=== PATIENT | female | born 1985 | race Caucasian/White ===

== ENCOUNTER 2020-07-04 16:46 | Emergency (ER) | payer OTHER, SELFPAY ==
[2020-07-04 17:30] VITALS: BP 114/76; PULSE 74; RESP 16; TEMP 36.8; O2SAT 100; BMI 24.0
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
[2020-07-04 18:31] LABS: UPreg QC Valid YES; Urine Pregnancy NEGATIVE (NEGATIVE)
[2020-07-04] MEDS: Ibuprofen 600 MG TABLET PO (19:21)
== END 2020-07-04 19:52 | disposition home or self-care (01) ==
PROVIDERS: Emergency Provider Emergency Medicine Emergency Medical Services; PCP Family Medicine
DX: S13.4XXA Sprain of ligaments of cervical spine, initial encounter (principal); S16.1XXA Strain of muscle, fascia and tendon at neck level, initial encounter; S39.012A Strain of muscle, fascia and tendon of lower back, initial encounter; V43.52XA Car driver injured in collision with other type car in traffic accident, initial encounter; M50.322 Other cervical disc degeneration at C5-C6 level; Y93.89 Activity, other specified; Y92.414 Local residential or business street as the place of occurrence of the external cause; Y99.8 Other external cause status
CPT/HCPCS: 71045; 72040; 72100; 81025; 99283; 99284

== ENCOUNTER 2020-07-24 12:29 | Emergency (ER) | payer OTHER, SELFPAY ==
[2020-07-24 12:39] VITALS: PULSE 110; RESP 18; TEMP 39.3; O2SAT 100; BMI 27.3
--- NOTE | 2020-07-24 12:56 | XR_ITS ---
EXAMINATION: XR CHEST CLINICAL INFORMATION: Cough and fever COMPARISON: None TECHNIQUE: Frontal view of the chest was obtained. FINDINGS: No significant abnormality is noted involving the heart, lungs, mediastinum, bony thorax or soft tissues. XR/XR chest 1V IMPRESSION: Unremarkable chest examination.
[2020-07-24] MEDS: Acetaminophen 325 MG TABLET 975 MG PO (13:06)
[2020-07-24 14:19] VITALS: BP 122/72; PULSE 100; RESP 18; TEMP 37.9; O2SAT 98
[2020-07-24 14:36] LABS: Glucose Urine UA NEG (NEG); Leukocyte Esterase Urine NEG (NEG); Nitrite Urine NEG (NEG); Specific Gravity - Urine 1.025 (1.005-1.025); Urine Blood 2+ (NEG); Urine Ketones >=80 MG/DL (NEG); Urine Protein 2+ MG/DL (NEG-TRACE)
[2020-07-24 14:39] LABS: Appearance Urine HAZY; Color Urine YELLOW
[2020-07-24 14:50] LABS: Influenza A PCR NEGATIVE (Negative); Influenza B PCR NEGATIVE (Negative); Resp Syncy Virus RNA Qual PCR NEGATIVE (Negative); SARS COV2 PCR INHOUSE NEGATIVE (Negative)
[2020-07-24 15:04] LABS: Squamous Epithelial Cell Urine 2+ /LPF; WBC Urine 0 /HPF (0-4)
[2020-07-24 15:05] LABS: Mucus Urine 2+ /LPF
[2020-07-24 15:06] VITALS: BP 128/72; PULSE 96; RESP 16; TEMP 36.9; O2SAT 99
--- NOTE | 2020-07-24 15:10 | ED_ITS ---
HPI - General Adult General Chief complaint: General Medical Stated complaint: Fever, body aches, sore throat Time Seen by Provider: 07/24/20 12:56 Source: patient Mode of arrival: ambulatory Limitations: no limitations History of Present Illness HPI narrative: Sore throat, body aches, chills for past 2 days Patient febrile 102.8 on arrival denies taking medication today Onset (ago): day(s) (2 days ) Severity: moderate Relieving factors: none Exacerbating factors: none Associated symptoms: denies other symptoms Treatments prior to arrival: none Related Data Previous Rx's Medication Instructions Recorded cyclobenzaprine 10 mg PO TID PRN #15 tab 07/04/20 ibuprofen 800 mg PO Q8H PRN #30 tab 07/24/20 penicillin V potassium 500 mg PO BID 10 Days #20 tab 07/24/20 Allergies Allergy/AdvReac Type Severity Reaction Status Date / Time No Known Allergies Allergy Verified 07/04/20 17:46 Review of Systems Review of Systems: Constitutional: No Weight loss, + Fever, + Chills, No Night Sweats, No Fatigue, No Malaise ENT/Mouth: No Hearing loss, No Ear Pain, + Nasal Congestion, No Sinus Pain, No Hoarseness, + sore throat, + Rhinorrhea, No Swallowing Difficulty Eyes: No Eye Pain, No Swelling, No Redness, No Foreign Body, No Discharge, No Vision Changes Cardiovascular: No Chest Pain, No SOB, No Dyspnea on Exertion, No Orthopnea, No Edema, No Palpitations Respiratory: No Cough, No Sputum, No Wheezing, No Smoke Exposure, No Dyspnea Gastrointestinal: No Nausea, No Vomiting, No Diarrhea, No Constipation, No abdominal Pain, No Hematochezia, No Melena Genitourinary: no irregular bleeding, No Dysuria, No Urinary Frequency, No Hematuria, No Urinary Incontinence, No Urgency, No Flank Pain Musculoskeletal: No joint pain, No Myalgias, No Joint Swelling Skin: No Skin Lesions, No rash Neuro: No Weakness, No Numbness, No Paresthesias, No Loss of Consciousness, No Dizziness, No Headache Psych: No Social Issues Heme/Lymph: No Bruising, No Bleeding,No Lymphadenopathy Endocrine: No Polyuria, No Polydipsia, No Temperature Intolerance Yes all other systems are reviewed and are negative PMFSH Past Medical History Medical History (Updated 12/26/20 @ 00:00 by Niyah Figueroa) Arthritis Bipolar 1 disorder Fibromyalgia PTSD (post-traumatic stress disorder) Social History Social History Smoking Status: Current every day smoker Use of substances other than those prescribed or required for medical reasons: Yes Substance Use Type: Marijuana Substance Use Frequency: Daily Advance Directives: No Advance Directives Information Provided: Yes Physical Exam Vital Signs: Vital Signs: Last Vital Signs Temp 98.4 F 07/24/20 15:06 Pulse 96 07/24/20 15:06 Resp 16 07/24/20 15:06 BP 128/72 07/24/20 15:06 Pulse Ox 99 07/24/20 15:06 Body Mass Index 27.3 Reviewed Const: General: cooperative and healthy appearing; No acute distress or intoxicated appearing Nutritional Appearance: average body habitus Orientation/consciousness: patient oriented x3 HENMT: Head: Yes normal to inspection Ears: hearing grossly normal bilaterally Mouth: other (Posterior pharynx slightly erythematous. No swel ling or evidence of CLINICAL APPEALS SPECIALIST. ) Eyes: General: appearance normal, both eyes and all related structures Visual Page: normal visual page by confrontation Neck: Neck: Yes normal visual inspection, No positive Brudzinski's sign, No positive Kernig's sign and No tender Thyroid: Thyroid normal Chest: Chest palpation & inspection: normal inspection of the chest Resp: Effort & Inspection: normal respiratory effort Auscultation: clear to auscultation bilaterally Cardio: Jugular venous distension: no JVD Rhythm: regular rhythm Heart sounds: S1 normal heart sound present and S2 normal heart sound present GI: Inspection: Yes normal to inspection Percussion: Yes normal to percussion Auscultation: normal bowel sounds : General: Yes no CVA tenderness Back/Spine/Pelvis: Back: no CVA tenderness Skin: General skin exam: no rashes or lesions noted Neuro: General: patient oriented x3 Extrem: General: Yes normal to inspection Course Reevaluation(s) Reevaluation #1: RUN: 07/24/20 0440 PAGE 1 [facility] [address] [place] [id number] Molding Machine Setter: Ricardo Wagner M.D. Specimen Inquiry Name: Brooks Burnette Age/Sex: 34/F : 1985 Unit#: [id number] Attend Dr: Fernanda ED Physician Re07/24/20 Status: REG ER [facility] Disch: Specimen: [id number] Collected: 07/24/20-1429 Status: COMP Req#: [id number] Received: 07/24/20144 Source: Throat Sp Desc: Subm Dr: Manfred Francois MEDICAL TECHNOLOGIST MICROBIOLOGY Ordered: Strep A Screen Procedure Result Verified Site Rapid Strep A Screen Final 07/24/20-1449 Rapid Strep A Screen Positive END OF REPORT Medical Decision Making Lab Data Labs: Lab Results 07/24/20 07/24/20 Range/Units 13:01 14:25 Urine Color YELLOW Urine Appearance HAZY Urine pH 7.0 (5.0-8.0) Ur Specific [place] 1.025 (1.005-1.025) Urine Protein 2+ H (NEG-TRACE) MG/DL Urine Glucose (UA) NEG (NEG) MG/DL Urine Ketones >=80 (NEG) MG/DL Urine Blood 2+ H (NEG) Urine Nitrite NEG (NEG) Ur Leukocyte Esterase NEG (NEG) Urine RBC 15-29 H (0) /HPF Urine WBC 0 (0-4) /HPF Ur Squamous Epith Cells 2+ /LPF Urine Bacteria NONE /LPF Urine Mucus 2+ /LPF Urine Test NEGATIVE (NEGATIVE) Coronavirus (PCR) NEGATIVE (Negative) Influenza Type A (PCR) NEGATIVE (Negative) Influenza Type B (PCR) NEGATIVE (Negative) RSV RNA Qual (PCR) NEGATIVE (Negative) Imaging Data Chest x-ray: Radiologist's impression: Brooks Burnette 34 F [address] [id number] XRay Report Signed Patient: Alyssa BurnetteR#: [id number] : 1985Acct:[id number] Age/Sex: 34 / FADM Date: 07/24/20 [facility] Attending Dr: Ordering Physician: Manfred Francois MEDICAL TECHNOLOGIST MICROBIOLOGY Date of Service: 07/24/20 Procedure(s): XR chest 1V Accession Number(s): [id number] cc: Manfred Francois MEDICAL TECHNOLOGIST MICROBIOLOGY~ EXAMINATION: XR CHEST CLINICAL INFORMATION: Cough and fever COMPARISON: None TECHNIQUE: Frontal view of the chest was obtained. FINDINGS: No significant abnormality is noted involving the heart, lungs, mediastinum, bony thorax or soft tissues. XR/XR chest 1V IMPRESSION: Unremarkable chest examination. Dictated By:EMILY LEMON MD Signed By:<Electronically signed by EMILY LEMON MD in OV>07/24/20 1343 DD/ 1256 TD/TT: Lining Stuffer: [facility] Discharge Plan Discharge Clinical Impression: Pharyngitis Patient Disposition: Home, Self-Care Instructions: Pharyngitis (ED) Additional Instructions: Your strep test was positive You will need to take antibiotic as prescribed Your COVID test was negative Her RSV test was negative Her flu test was negative Her chest x-ray was negative Return if any concerns or worsening symptoms Otherwise follow supportive care discussed Thank you Prescriptions: New penicillin V potassium 500 mg tablet 500 mg PO BID 10 Days Qty: 20 RF: 0 ibuprofen 800 mg tablet 800 mg PO Q8H PRN (Reason: pain) Qty: 30 RF: 0 No Action cyclobenzaprine 10 mg tablet 10 mg PO TID PRN (Reason: muscle spasm) Qty: 15 RF: 0 Referrals: Brenda Kelly MD [Primary Care Provider] - 1 week Interventions: ED Discharge Assessment Last Done: 07/24/20 16:31 Discharge Date/Time: 07/24/20 16:00
[2020-07-24 15:59] LABS: UPreg QC Valid YES; Urine Pregnancy NEGATIVE (NEGATIVE)
== END 2020-07-24 16:00 | disposition home or self-care (01) ==
PROVIDERS: Nurse Practitioner Primary Care; Emergency Provider Emergency Medicine Emergency Medical Services; PCP Family Medicine
DX: J02.0 Streptococcal pharyngitis (principal); R50.9 Fever, unspecified; R05 Cough; Z20.828 Contact with and (suspected) exposure to other viral communicable diseases; Z79.899 Other long term (current) drug therapy
CPT/HCPCS: 0241U; 71045; 81001; 81025; 87880; 99283; 99284

== ENCOUNTER 2020-11-30 13:36 | Outpatient (REF) | payer OTHER, SELFPAY ==
[2020-11-30 14:46] LABS: COVID-19 Test Negative (Negative); IDNOW Serial# 55D5AD1C
== END 2020-11-30 13:37 | disposition home or self-care (01) ==
LOC: HO.LAB 13:36
PROVIDERS: Visit Provider Internal Medicine
DX: Z20.822 Contact with and (suspected) exposure to COVID-19 (principal)
CPT/HCPCS: 36415; 87635; C9803

== ENCOUNTER 2021-01-29 12:03 | Outpatient (REF) | payer OTHER, SELFPAY ==
--- NOTE | ~2021-01-29 | XR_ITS ---
EXAMINATION: XR LUMBOSACRAL SPINE WITH OBLIQUES CLINICAL INFORMATION: Lumbago with sciatica left side. COMPARISON: 07/04/2020 TECHNIQUE: AP, both oblique, and lateral views of the lumbar spine. Lateral view of the lumbosacral junction. FINDINGS: 5 nonrib-bearing lumbar type vertebral bodies are seen. Normal sagittal alignment. Vertebral body and disc heights are maintained. Posterior elements are intact. There is mild subtle convex right lumbar scoliosis with apex at L2. XR/XR lumbar spine 4V min IMPRESSION: Very subtle mild convex right lumbar scoliosis with apex at L2, not seen previously. This can be positional or due to muscle spasm. Otherwise normal study.
== END 2021-01-29 12:04 | disposition home or self-care (01) ==
LOC: HO.XRAY 12:03
PROVIDERS: PCP Family Medicine; Visit Provider Family Medicine
DX: M54.42 Lumbago with sciatica, left side (principal)
CPT/HCPCS: 72110

== ENCOUNTER 2021-11-01 15:57 | Emergency (ER) | payer OTHER, SELFPAY ==
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
[2021-11-01 17:17] VITALS: BP 127/67; PULSE 88; RESP 17; TEMP 36.2; O2SAT 99; BMI 28.6
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
== END 2021-11-01 19:21 | disposition home or self-care (01) ==
PROVIDERS: Emergency Provider Emergency Medicine; PCP Family Medicine
DX: S43.401A Unspecified sprain of right shoulder joint, initial encounter (principal); V03.00XA Pedestrian on foot injured in collision with car, pick-up truck or van in nontraffic accident, initial encounter; Y93.89 Activity, other specified; Y92.481 Parking lot as the place of occurrence of the external cause; Y99.8 Other external cause status
CPT/HCPCS: 73030; 99283

== ENCOUNTER 2022-05-26 12:14 | Outpatient (REF) | payer OTHER, SELFPAY ==
[2022-05-26 12:57] LABS: MANUAL DIFF FLAG NO
[2022-05-26 13:09] LABS: Basophils Percent Auto 0.5 % (0-2); Eosinophils Absolute Auto 0.2 X10*3/uL (0.0-0.4); Eosinophils Percent Auto 2.3 % (0-4); Hematocrit 41.7 % (37.0-47.0); Imm Gran Abs Auto 0.02 X10*3/uL (0.00-0.03); Imm Gran Pct Auto 0.3 % (0.0-0.4); Lymphocytes Percent Auto 25.4 % (20-40); Mean Corpuscular HGB Conc 33.6 g/dl (31.0-35.0); Mean Corpuscular Volume 98.3 fL (80.0-98.0); Mean Platelet Volume 11.6 fL (9.4-12.3); Monocytes Absolute Auto 0.5 X10*3/uL (0.1-1.2); Monocytes Percent Auto 6.6 % (2-11); Neutrophils Percent Auto 64.9 % (45-73); Platelet Count 153 X10*3/uL (160-400); Red Blood Count 4.24 X10*6/uL (4.20-5.50); Red Cell Distribution Width 12.1 % (11.0-16.0); White Blood Count 7.7 X10*3/uL (4.8-10.8)
[2022-05-26 14:04] LABS: Alanine Aminotransferase 9 U/L (0-31); Albumin Level 4.8 g/dL (3.5-5.0); Alkaline Phosphatase 74 U/L (39-117); Anion Gap 13 (12-20); Aspartate Amino Transferase 14 U/L (5-31); Bilirubin Total 0.3 mg/dL (0.0-1.0); Blood Urea Nitrogen 13 mg/dL (9-16); C Reactive Protein 0.04 mg/dL (< or = 0.50); Calcium 9.6 mg/dL (8.4-10.2); Carbon Dioxide 25 mmol/L (22-29); Chloride 104 mmol/L (96-108); Estimated Glomerular Filt Rate > 60; Glucose Random 87 mg/dL (60-115); Iron 129 mcg/dL (30-160); Percent Iron Saturation 33 % (15-50); Potassium 4.2 mmol/L (3.3-5.1); Sodium 138 mmol/L (135-145); Total Iron Binding Capacity 393 mcg/dL (228-428); Total Protein 7.6 g/dL (6.5-8.0); Unsaturated Iron Binding 264 ug/dL
[2022-05-26 14:13] LABS: Rheumatoid Factor < 15.0 IU/mL (<15.0)
[2022-05-26 14:16] LABS: Ferritin 39 ng/mL (10-122); TSH reflex Free T4 1.19 uIU/mL (0.32-4.0); Thyroid Stimulating Hormone 1.14 uIU/mL (0.32-4.0)
[2022-05-26 14:32] LABS: Total Protein Urine Random < 7 mg/dL (<12)
[2022-05-26 14:59] LABS: Vitamin B12 273 pg/mL (200-900)
[2022-05-27 04:43] LABS: HBS Num1 105.88 mIU/mL (0-7.99); HBc Num1 0.07 S/CO (0.00-0.79); HBsAGNum1 0.14 S/CO (0.00-0.99); HIV AB/AG Nonreactive (Nonreactive); HIV Num 1 0.06 S/CO (0.00-0.99); Hepatitis B Core Antibody Nonreactive (Nonreactive); Hepatitis B Surface Antigen Negative (Negative); ~HepC Num1 0.13 S/CO (0.00-0.79); ~Hepatitis A Antibody IgM Nonreactive (Nonreactive); ~Hepatitis B Surface Antibody REACTIVE (Nonreactive); ~Hepatitis C Antibody Nonreactive (Nonreactive)
[2022-05-28 11:42] LABS: Transferrin 295 mg/dL (188-341)
[2022-05-30 11:48] LABS: Anti DNA DS Antibody <1 IU/mL; Antibody to SS-A Antigen <1.0 NEG AI (<1.0 NEG); Antibody to SS-B Antigen <1.0 NEG AI (<1.0 NEG); SM/Ribonucleoprotein Ab <1.0 NEG AI (<1.0 NEG); Smith Protein <1.0 NEG AI (<1.0 NEG)
[2022-05-30 11:56] LABS: Cardiolipin IgG Ab <2.0 GPL-U/mL; Cardiolipin IgM Ab <2.0 MPL-U/mL
[2022-05-30 12:22] LABS: Complement C3 131 mg/dL (83-193)
[2022-05-30 18:41] LABS: Cyclic Citrullinated Peptide 69 UNITS
[2022-05-30 22:32] LABS: PTT (LAC) Screen 33 sec (<=40)
[2022-05-31 09:42] LABS: IgA 146 mg/dL (47-310); IgG 1192 mg/dL (600-1640); IgM 176 mg/dL (50-300)
[2022-05-31 18:11] LABS: Prot Elec - Albumin 4.5 g/dL (3.8-4.8); Prot Elec - Alpha1 0.3 g/dL (0.2-0.3); Prot Elec - Alpha2 0.5 g/dL (0.5-0.9); Prot Elec - Beta 1 0.5 g/dL (0.4-0.6); Prot Elec - Beta 2 0.3 g/dL (0.2-0.5); Prot Elec - Gamma 1.1 g/dL (0.8-1.7); Prot Elec - Total Protein 7.1 g/dL (6.1-8.1)
[2022-05-31 21:36] LABS: Beta-2 Glycoprotein IgA <2.0 U/mL (<20.0); Beta-2 Glycoprotein IgG <2.0 U/mL (<20.0); Beta-2 Glycoprotein IgM <2.0 U/mL (<20.0)
[2022-06-01 14:23] LABS: DNAds, Crithidia Antibody Negative (Negative)
[2022-06-01 16:47] LABS: Vitamin D 25-OH, D2 <4 ng/mL; Vitamin D 25-OH, D3 22 ng/mL; Vitamin D 25-OH, Total 22 ng/mL (30-100)
== END 2022-05-26 12:15 | disposition home or self-care (01) ==
LOC: HO.10HDL 12:14
PROVIDERS: Visit Provider Student in an Organized Health Care Education/Training Program
DX: Z11.59 Encounter for screening for other viral diseases (principal); Z13.21 Encounter for screening for nutritional disorder; Z11.4 Encounter for screening for human immunodeficiency virus [HIV]; R53.83 Other fatigue; R76.8 Other specified abnormal immunological findings in serum; D64.9 Anemia, unspecified; M79.7 Fibromyalgia
CPT/HCPCS: 80053; 82306; 82550; 82607; 82728; 82746; 82784; 83540; 84156; 84165; 84443; 84466; 85025; 85597; 85613; 85652; 85730; 86038; 86039; 86140; 86146; 86147; 86160; 86200; 86225; 86235; 86255; 86334; 86431; 86704; 86706; 86709; 86803; 87340; 87389; 99202

== ENCOUNTER → 2022-07-08 09:45 | Outpatient (BNVA) | payer OTHER, SELFPAY | PROVIDERS: PCP Family Medicine; Referring Provider Family Medicine; Visit Provider Student in an Organized Health Care Education/Training Program | DX: M79.7 Fibromyalgia (principal); R76.8 Other specified abnormal immunological findings in serum | CPT/HCPCS: 99212 ==

== ENCOUNTER 2023-05-03 15:26 | Outpatient (REF) | payer OTHER, SELFPAY ==
[2023-05-03 16:20] LABS: Appearance Urine Cloudy; Color Urine Yellow; Glucose Urine UA Negative (Negative); Leukocyte Esterase Urine Negative (Negative); Nitrite Urine Negative (Negative); Urine Blood Negative (Negative); Urine Ketones Negative (Negative); Urine Protein Negative (Neg-Trace)
[2023-05-03 16:26] LABS: Bacteria Urine None Seen (None Seen); Hyaline Casts Urine 0-2 /LPF (0-2); RBC Urine 0-2 /HPF (0-2); Squamous Epithelial Cell Urine 0-2 /HPF (0-2); WBC Urine 0-5 /HPF (0-5)
[2023-05-03 17:00] LABS: Erythrocyte Sedimentation Rate 6 MM/HR (0-20)
[2023-05-08 13:59] LABS: Anti Nuclear Antibody Screen NEGATIVE (NEGATIVE)
== END 2023-05-03 15:27 | disposition home or self-care (01) ==
LOC: HO.LAB 15:26
PROVIDERS: PCP Family Medicine; Visit Provider Student in an Organized Health Care Education/Training Program
DX: R76.8 Other specified abnormal immunological findings in serum (principal)
CPT/HCPCS: 36415; 73110; 73130; 81001; 85652; 86038

== ENCOUNTER 2023-05-10 15:26 | Outpatient (AMB) | payer OTHER, SELFPAY ==
[2023-05-10 15:29] VITALS: BP 116/70; PULSE 91; TEMP 36.7; O2SAT 96; BMI 24.8
--- NOTE | 2023-05-10 15:29 | A.OFFVIS_ITS ---
Intake Vital Signs 05/10/23 15:29 Height 5 ft 4 in Weight 144 lb 9.972 oz BMI 24.8 BP 116/70 Blood Pressure Location Rt brachial Position Sitting Pulse 91 Pulse Source Pulse Oximeter Temp 98.1 F Temp Source Skin Pulse Oximetry (%) 96 Intake Visit Reasons: FMS Intake Note: Pt seen today for FM follow up. C/o right hand tingling and numbing; bl hand/knuckle pain. Reports she started new job about a month ago and since has experienced an increase in pain. 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 Patient states that she has been more active over the last few months. She was walking more and started a gym membership, she started lifting weights and has been able to progressively lift more weight. Feeling much more active overall. 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 Initial history: This is a 36-year-old female with a past medical history of PTSD, bipolar disorder, PCOS who presents for evaluation of diffuse pain. Patient was diagnosed with fibromyalgia since 2014, per PCP she failed Lyrica, gabapentin and duloxetine as well as cyclobenzaprine. She was evaluated by Dr. Philip, last seen 01/2019 there was no evidence of autoimmune rheumatic disease at that time. Patient continues to have sharp pain affecting multiple areas including her arms, fingers, back, hips. She stated that the medications did not help her over the years or caused side effects but she cannot recall which medications caused which side effects. Patient stated she was at least 3-4 times and had multiple miscarriages. No history of DVT/PE [facility] Medical History PCOS (polycystic ovarian syndrome) History of ectopic Bipolar 1 disorder Arthritis PTSD (post-traumatic stress disorder) Fibromyalgia Family History Mother Seizure disorder Maternal Grandmother Diabetes Osteoporosis Social History Household Members: Spouse Housing: Condominium Alcohol intake: current Alcohol intake frequency: a few times a month Alcohol type: beer and wine Patient Tobacco Use Status: Current everyday Tobacco user Cigarettes Per Day: 4 Substance Use Type: Marijuana Current occupational status: unemployed Review of Systems Musc Details: Muscle tenderness Reports arthralgias Neuro Details: Muscle spasm Psych Reports anxiety Physical Exam Vital Signs: Last Vital Signs Temp 98.1 F 05/10/23 15:29 Pulse 91 05/10/23 15:29 BP 116/70 05/10/23 15:29 Pulse Ox 96 05/10/23 15:29 BMI result Body Mass Index 24.8 Const General: cooperative, healthy appearing, comfortable and no acute distress Nutritional Appearance: average body habitus Limitations: no limitations HEENT Head: Yes normocephalic and Yes atraumatic Mouth: moist mucous membranes Resp Effort & Inspection: normal respiratory effort and able to speak in complete sentences Auscultation: clear to auscultation bilaterally Cardio Rate: regular rate Rhythm: regular rhythm Extrem Other: No synovitis Few early Heberden's nodes. Few fibromyalgia tender points Negative Tinel sign bilaterally Normal nailfold capillaroscopy Results Reviewed Results Reviewed: [address] [address] XRay Report Signed Patient: Fitz Burnette MR#: [id number] : 1985 Acct:[id number] Age/Sex: 37 / F ADM Date: 05/03/23 Loc: HO.LAB Attending Dr: Sendy Franklin MD Ordering Physician: Sendy Franklin MD Date of Service: 05/03/23 Procedure(s): XR hand wrist RT Accession Number(s): [id number] cc: Brenda Kelly MD; Sendy Franklin MD~ EXAMINATION: XR HAND/WRIST, RIGHT XR HAND/WRIST, LEFT CLINICAL INFORMATION: Other specified abnormal immunologic findings in serum. COMPARISON: Radiographs dated 08/16/2018 and 04/21/2008. TECHNIQUE: PA, lateral, and oblique views of the each hand and wrist, together with a dedicated navicular views. FINDINGS: RIGHT HAND/WRIST: The bones and soft tissues are normal. No fracture. Alignment is anatomic. Joint spaces are maintained. No erosions or soft tissue calcifications. LEFT HAND/WRIST: The bones and soft tissues are normal. No fracture. Alignment is anatomic. Joint spaces are maintained. No erosions or soft tissue calcifications. XR/XR hand wrist RT IMPRESSION: Normal radiographs of the hands and wrists. Assessment & Plan Assessment & Plan (1) Fibromyalgia, primary: Code(s): M79.7 - Fibromyalgia Plan: 37-year-old female with fibromyalgia presents for follow-up. Patient is doing better overall since she started becoming more active at the gym. 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 Patient failed numerous medicines for fibromyalgia in the past including cyclobenzaprine, Cymbalta, Lyrica, gabapentin. This point patient seems to better understand her condition and she is able to self manage it with exercising and reducing stress. Follow-up with PCP (2) Positive anti-CCP test: Code(s): R76.8 - Other specified abnormal immunological findings in serum Plan: There is no evidence of synovitis on exam however. Symptoms consistent with fibromyalgia. I strongly advised patient to quit smoking as this would be a modifiable risk factor to potentially prevent development of rheumatoid arthritis. I explained to patient symptoms that are suggestive of rheumatoid arthritis and she should return if she has any new symptoms Follow-up as needed Plan I spent 15 minutes reviewing patient's chart, evaluating patient, counseling patient and documenting in the chart Coding Level of Care Code Est Pt Level 3 (03852) Diagnoses Fibromyalgia, primary M79.7 Positive anti-CCP test R76.8
== END 2023-05-10 15:54 | disposition home or self-care (01) ==
PROVIDERS: PCP Family Medicine; Visit Provider Student in an Organized Health Care Education/Training Program
DX: M79.7 Fibromyalgia (principal); R76.8 Other specified abnormal immunological findings in serum
CPT/HCPCS: 99213

== ENCOUNTER → 2023-05-10 15:26 | Outpatient (BNVA) | payer OTHER, SELFPAY | PROVIDERS: PCP Family Medicine; Visit Provider Student in an Organized Health Care Education/Training Program | DX: M79.7 Fibromyalgia (principal); R76.8 Other specified abnormal immunological findings in serum | CPT/HCPCS: 99212 ==

== ENCOUNTER 2023-06-05 11:36 | Outpatient (REF) | payer OTHER, SELFPAY ==
[2023-06-05 13:13] LABS: MANUAL DIFF FLAG NO
[2023-06-05 13:31] LABS: Basophils Percent Auto 0.7 % (0-2); Eosinophils Absolute Auto 0.2 X10*3/uL (0.0-0.4); Hematocrit 39.5 % (37.0-47.0); Hemoglobin 12.8 g/dl (12.0-16.0); Imm Gran Abs Auto 0.02 X10*3/uL (0.00-0.03); Imm Gran Pct Auto 0.4 % (0.0-0.4); Lymphocytes Absolute Auto 1.7 X10*3/uL (1.2-4.9); Lymphocytes Percent Auto 30.5 % (20-40); Mean Corpuscular HGB Conc 32.4 g/dl (31.0-35.0); Mean Corpuscular Hemoglobin 33.4 pg (27.0-33.0); Mean Corpuscular Volume 103.1 fL (80.0-98.0); Mean Platelet Volume 11.9 fL (9.4-12.3); Monocytes Absolute Auto 0.3 X10*3/uL (0.1-1.2); Monocytes Percent Auto 5.5 % (2-11); Neutrophils Absolute Auto 3.4 x10*3/uL (2.0-8.3); Neutrophils Percent Auto 59.9 % (45-73); Platelet Count 198 X10*3/uL (160-400); Red Blood Count 3.83 X10*6/uL (4.20-5.50); White Blood Count 5.6 X10*3/uL (4.8-10.8)
[2023-06-05 13:40] LABS: Estimated Average Glucose 97 mg/dL
[2023-06-05 14:06] LABS: Alanine Aminotransferase 13 U/L (0-31); Albumin Level 4.3 g/dL (3.5-5.0); Alkaline Phosphatase 62 U/L (39-117); Anion Gap 11 (12-20); Aspartate Amino Transferase 16 U/L (5-31); Bilirubin Direct 0.2 mg/dL (0.0-0.5); Bilirubin Total 0.4 mg/dL (0.0-1.0); Blood Urea Nitrogen 12 mg/dL (9-16); Calcium 9.4 mg/dL (8.4-10.2); Carbon Dioxide 27 mmol/L (22-29); Chloride 107 mmol/L (96-108); Cholesterol 137 mg/dL (<200); Estimated Glomerular Filt Rate > 60; Glucose Random 83 mg/dL (60-115); HDL Cholesterol 65 mg/dL (>40); LDL Cholesterol Calculated 54 mg/dL (<100); Potassium 3.9 mmol/L (3.3-5.1); Sodium 141 mmol/L (135-145); TSH reflex Free T4 0.78 uIU/mL (0.32-4.0); Total Protein 7.1 g/dL (6.5-8.0); Triglycerides 92 mg/dL (<150)
[2023-06-06 06:09] LABS: HIV AB/AG Nonreactive (Nonreactive); HIV Num 1 0.07 S/CO (0.00-0.99); ~HepC Num1 0.09 S/CO (0.00-0.79); ~Hepatitis C Antibody Nonreactive (Nonreactive)
[2023-06-06 11:33] LABS: RPR Rapid Plasma Reagin NON-REACTIVE (NON-REACTIVE)
== END 2023-06-05 11:37 | disposition home or self-care (01) ==
LOC: HO.HHCL 11:36
PROVIDERS: Visit Provider Family Medicine
DX: Z11.3 Encounter for screening for infections with a predominantly sexual mode of transmission (principal); E28.2 Polycystic ovarian syndrome; Z86.19 Personal history of other infectious and parasitic diseases
CPT/HCPCS: 36415; 80048; 80061; 80076; 83036; 84443; 85025; 86592; 86803; 87389

== ENCOUNTER 2023-07-12 15:10 | Outpatient (REF) | payer OTHER, SELFPAY ==
--- NOTE | 2023-07-12 15:13 | EMG_ITS ---
Chief complaint: Hand numbness, neck pain Reason for referral: Evaluate for Carpal Tunnel Syndrome versus radiculopathy Referred by: Dr. Kelly Procedure done: Bilateral upper extremities NCS/EMG Precautions and/or limitations: None The limb temperature was monitored continuously and remained between 32-36 degrees C during the performance of the NCS. Nerve Conduction Studies Anti Sensory Summary Table ?Stim Site NR Onset (ms) Norm Onset (ms) Peak (ms) Norm Peak (ms) O-P Amp (?V) Norm O-P Amp Site1 Site2 Delta-0 (ms) Dist (cm) Miguelangel (m/s) Norm Miguelangel (m/s) Left Median Anti Sensory (2nd Digit) Wrist ? 2.7 3.6 <3.6 35.1 >10 Wrist 2nd Digit 2.7 14.0 52 Left Median Anti Sensory Run #2 (3rd Digit) Wrist ? 2.9 3.6 <3.6 29.6 >10 Wrist 2nd Digit 2.9 14.0 48 Right Median Anti Sensory Run #1 (2nd Digit) Wrist ? 3.0 3.6 <3.6 35.0 >10 Wrist 2nd Digit 3.0 14.0 47 Right Median Anti Sensory Run #2 (3rd Digit) Wrist ? 2.7 3.7 <3.6 22.0 >10 Wrist 2nd Digit 2.7 14.0 52 Left Ulnar Anti Sensory (5th Digit) Wrist ? 2.2 2.8 <3.7 47.9 >15.0 Wrist 5th Digit 2.2 14.0 64 Right Ulnar Anti Sensory (5th Digit) Wrist ? 2.3 3.0 <3.7 31.9 >15.0 Wrist 5th Digit 2.3 14.0 61 Motor Summary Table ?Stim Site NR Onset (ms) Norm Onset (ms) O-P Amp (mV) Norm O-P Amp iAmp (mV) Amp (1st) (%) Site1 Site2 Delta-0 (ms) Dist (cm) Miguelangel (m/s) Norm Miguelangel (m/s) Left Median Motor (Abd Poll Brev) Wrist ? 4.1 <3.9 11.8 >4.5 13.6 100.0 Elbow Wrist 3.2 22.5 70 >45 Elbow ? 7.3 11.0 13.1 93.2 Right Median Motor (Abd Poll Brev) Wrist ? 5.2 <3.9 6.6 >4.5 7.5 100.0 Elbow Wrist 2.3 22.0 96 >45 Elbow ? 7.5 8.5 10.3 128.8 Left Ulnar Motor (Abd Dig Minimi) Wrist ? 2.6 <3.0 8.8 >5 10.0 100.0 B Elbow Wrist 3.0 19.0 63 >45 B Elbow ? 5.6 7.5 9.2 85.2 A Elbow B Elbow 1.4 10.0 71 >45 A Elbow ? 7.0 7.5 9.2 85.2 Right Ulnar Motor (Abd Dig Minimi) Wrist ? 2.6 <3.0 9.5 >5 10.8 100.0 B Elbow Wrist 3.2 20.0 63 >45 B Elbow ? 5.8 8.0 9.2 84.2 A Elbow B Elbow 1.2 10.0 83 >45 A Elbow ? 7.0 7.8 9.0 82.1 Comparison Summary Table ?Stim Site NR Peak (ms) Norm Peak (ms) P-T Amp (?V) Site1 Site2 Delta-P (ms) Norm Delta (ms) Right Median/Radial Dig I Comparison (Digit 1 - 10cm) Median ? 3.2 <2.9 88.9 Median Radial 0.0 Radial ? 3.2 <2.8 59.3 EMG ?Side Muscle Nerve Root Ins Act Fibs Psw Amp Dur Poly Recrt Int Pat Comment Right FlexCarRad Median C6-7 Nml Nml Nml Nml Nml 0 Nml Complete Right Biceps Musculocut C5-6 Nml Nml Nml Nml Nml 0 Nml Complete Right Triceps Radial C6-7-8 Nml Nml Nml Nml Nml 0 Nml Complete Right Deltoid Axillary C5-6 Nml Nml Nml Nml Nml 0 Nml Complete Left FlexCarRad Median C6-7 Nml Nml Nml Nml Nml 0 Nml Complete Left Biceps Musculocut C5-6 Nml Nml Nml Nml Nml 0 Nml Complete Left Triceps Radial C6-7-8 Nml Nml Nml Nml Nml 0 Nml Complete Left Deltoid Axillary C5-6 Nml Nml Nml Nml Nml 0 Nml Complete Left Abd Poll Brev Median C8-T1 Nml Nml Nml Nml Nml 0 Nml Complete Right Abd Poll Brev Median C8-T1 Nml Nml Nml Nml Nml 0 Nml Complete FINDINGS: Bilateral median motor nerves showed prolonged distal latency, normal amplitude and normal conduction velocity. Evidence of possible Gabriel Danyel anastomosis was seen, which is a normal anatomic variant. Bilateral median sensory nerves, recording at digit 2, showed just borderline peak latencies. Confirmed by recording on digit 3, again borderline/prolonged peak latencies. All other nerves tested were within normal. Concentric needle EMG was performed in selected muscles of the bilateral upper extremities and cervical paraspinals. Study did not reveal signs of electric abnormalities as shown in the table below. IMPRESSION: 1. This is an abnormal study. 2. There is electrodiagnostic evidence for bilateral moderate-severe median neuropathy at the wrist, consistent with carpal tunnel syndrome. 3. There is no electrodiagnostic evidence for ulnar neuropathy, brachial plexopathy, or cervical radiculopathy. 4. Evidence of possible bilateral Gabriel Danyel anastomosis was seen, which is a normal anatomic variant. Thank you for your kind referral. Nadine Whiteside MD, JUJU Board Certified, [place] Board [employer] and Rehabilitation (ABPMR) Board Certified, [place] Board [employer] Electrodiagnostic [employer] (ABEM) CODIN [id number] x 2 MTDD
== END 2023-07-12 15:11 | disposition home or self-care (01) ==
LOC: HO.NEURO 15:10
PROVIDERS: PCP Family Medicine; Visit Provider Family Medicine
DX: R20.0 Anesthesia of skin (principal)
CPT/HCPCS: 95886; 95911

== ENCOUNTER → 2023-07-12 15:13 | Outpatient (BNV) | payer OTHER, SELFPAY | PROVIDERS: PCP Family Medicine; Visit Provider Physical Medicine & Rehabilitation | DX: G56.13 Other lesions of median nerve, bilateral upper limbs (principal); G56.03 Carpal tunnel syndrome, bilateral upper limbs | CPT/HCPCS: 95886; 95912 ==

== ENCOUNTER 2023-08-07 11:13 | Outpatient (REF) | payer OTHER, SELFPAY ==
[2023-08-09 06:39] LABS: Lyme Abs Screen <0.90 index
[2023-08-12 00:23] LABS: VITAMIN D (1,25 OH) D3 50 pg/mL; Vit D (1,25-Dihydroxy) Total 50 pg/mL (18-72); Vitamin D (1,25 OH) D2 <8 pg/mL
== END 2023-08-07 11:14 | disposition home or self-care (01) ==
LOC: HO.HHCL 11:13
PROVIDERS: Visit Provider Emergency Medicine
DX: R53.83 Other fatigue (principal)
CPT/HCPCS: 36415; 80048; 82652; 84443; 85025; 86308; 86617; 86618

== ENCOUNTER 2023-11-18 13:45 | Emergency (ER) | payer OTHER, SELFPAY ==
--- NOTE | ~2023-11-18 | XR_ITS ---
EXAMINATION: XR CHEST CLINICAL INFORMATION: Chest pain COMPARISON: Chest x-ray on 07/24/2020 TECHNIQUE: 2 views of the chest were obtained. FINDINGS: No significant abnormality is noted involving the heart, lungs, mediastinum, bony thorax or soft tissues. XR/XR chest 2V IMPRESSION: Unremarkable examination.
[2023-11-18 13:56] VITALS: BP 120/71; PULSE 104; RESP 16; TEMP 36.9; O2SAT 100; BMI 24.2
--- NOTE | 2023-11-18 13:56 | ED.BACK ---
HPI - Back Pain/Injury General Chief Complaint: Extremity Injury, Upper Stated Complaint: neck and shoulder pain Time Seen by Provider: 11/18/23 14:20 Source: patient Mode of arrival: ambulatory Limitations: no limitations History of Present Illness HPI Narrative: 38-year-old female presents to the emergency department with stiff neck/soreness, patient reports she awoke with this pain earlier this morning. She reports this has been going on for awhile however this morning worse. Patient reports that it hurts when she turns her head to the left, it is a sore sensation in her neck in the back of her shoulder and shoulder and at times it goes into her right anterior chest wall. Denies trauma denies heavy lifting. She reports she has a significant history of arthritis. Patient at this time denies chest pain, shortness of breath, nausea, vomiting, abdominal pain, numbness, tingling, upper extremity weakness, fevers, chills, recent trauma. Related Data Home Medications ?Medication ?Instructions ?Recorded ?Confirmed albuterol sulfate 90 mcg/actuation 2 puff inhalation Q4-6H PRN 05/26/22 aerosol inhaler wheezing Previous Rx's ?Medication ?Instructions ?Recorded naproxen 500 mg tablet 500 mg PO BID PRN pain #20 tabs 11/01/21 cyclobenzaprine 10 mg tablet 10 mg PO BEDTIME PRN muscle spasm 11/18/23 #7 tabs ketorolac 10 mg tablet 10 mg PO TID PRN pain 5 days #15 11/18/23 tabs lidocaine 5 % topical patch 1 patch topical DAILY PRN pain #15 11/18/23 ea Allergies Allergy/AdvReac Type Severity Reaction Status Date / Time No Known Allergies Allergy Verified 11/18/23 14:00 Review of Systems Review of Systems: Yes all other systems are reviewed and are negative PMFSH Past Medical History Attestation statement: The following information was validated with the patient. Source: old records reviewed and nursing notes reviewed Medical History PCOS (polycystic ovarian syndrome) History of ectopic Bipolar 1 disorder Arthritis PTSD (post-traumatic stress disorder) Fibromyalgia Family History Family History Mother Seizure disorder Maternal Grandmother Diabetes Osteoporosis Social History Social History Household Members: Spouse Housing: Condominium Alcohol intake: current Alcohol intake frequency: a few times a month Alcohol type: beer and wine Patient Tobacco Use Status: Current everyday Tobacco user Cigarettes Per Day: 4 Substance Use Type: Marijuana Advance Directives: No Current occupational status: unemployed Physical Exam Vital Signs: Vital Signs: Last Vital Signs Temp 98.5 F 11/18/23 13:56 Pulse 104 H 11/18/23 13:56 Resp 16 11/18/23 13:56 BP 120/71 11/18/23 13:56 Pulse Ox 100 11/18/23 13:56 O2 Del Method Room Air 11/18/23 13:56 BMI result Body Mass Index 24.2 vss Appearance: Alert.? Oriented X3.? No acute distress.? Head: Normocephalic, atraumatic, no step-offs or deformities Eyes: Pupils equal, round and reactive to light.? Neck: Normal inspection.? Neck supple.?No meningeal signs CVS: Normal heart rate and rhythm.? Pulses normal.? Respiratory: No respiratory distress.? Breath sounds normal.? Abdomen: Soft and nontender.? Skin: Skin warm and dry.? Normal skin color.? Normal skin turgor.? Extremities: No lower extremity edema.? No calf ttp. 5/5 strength to bilateral upper and lower extremities Back: No midline tenderness, no C-spine tenderness, full range of motion, no CVA tenderness bilaterally + tenderness to palpation to right-sided cervical paraspinous muscles, and trapezius. Patient reports slight discomfort with range of motion when turning neck to the left. Neuro: Oriented X 3.? No motor deficit.? No sensory deficit. CN 2-12 intact Course Course Course Narrative: This is a rapid medical exam. Deferred additional HPI, ROS, PE to primary provider. 38 yo female with history of fibromyalgia, arthritis, PCOS here with complaints of right sided chest/neck/shoulder pain chronic pain years worsened since yesterday. Will obtain labs, EKG, CXR VSS Reevaluation(s) Reevaluation #1: CBC unremarkable. Chemistry no acute findings requiring intervention. Troponin negative, EKG nonischemic. Chest x-ray unremarkable. Educated patient on diagnosis and treatment plan, answered all question, patient verbalizes understanding. At this time patient will be discharged home, advised to return with new or worsening symptoms. Educated on worrisome signs and symptoms and when to return. At this time I feel comfortable discharge home.. Time: 16:47 Medications Administered Discontinued Medications Generic Name Dose Route Start Last Admin Trade Name Edmond PRN Reason Stop Dose Admin Ketorolac Tromethamine 30 mg 11/18/23 15:17 11/18/23 15:54 Ketorolac Tromethamine 30 Mg/Ml Vial IM 11/18/23 15:18 30 mg ONCE ONE Administration Lidocaine 1 patch 11/18/23 15:17 11/18/23 15:54 Lidocaine 4 % Patch Adh..Patch TRANSDERMA 11/18/23 15:18 1 patch ONCE ONE Administration Protocol Medical Decision Making Medical Decision Making [facility] Narrative: 38 yo f presents w/ right neck and shoulder pain since this AM. PE tenderness to palpation to right-sided cervical paraspinous muscles, and trapezius. Patient reports slight discomfort with range of motion when turning neck to the left. History and physical exam concerning for cervical versus trapezius muscle spasm or strain versus torticollis versus cervical radiculopathy. Unlikely cervical myelopathy, cord compression, meningitis, encephalitis, ACS, PE, dissection. No signs of neurovascular compromise or acute threat to limb. Plan imaging ordered, basic labs. Differential Diagnosis Differential Diagnoses: The differential diagnosis associated with the presentation includes History and physical exam concerning for cervical versus trapezius muscle spasm or strain versus torticollis versus cervical radiculopathy. Unlikely cervical myelopathy, cord compression, meningitis, encephalitis, ACS, PE, dissection. No signs of neurovascular compromise or acute threat to limb. Admission/Observation Consideration of admission/observation: Escalation of care including admission/observation considered Unlikely Lab Data [facility] Lab Attestation statement: I reviewed the patient's lab results. 11/18/23 14:50 11/18/23 14:50 Labs: Lab Results 11/18/23 Range/Units 14:50 WBC 5.3 (4.8-10.8) X10*3/uL RBC 3.77 L (4.20-5.50) X10*6/uL Hgb 12.7 (12.0-16.0) g/dl Hct 37.9 (37.0-47.0) % MCV 100.5 H (80.0-98.0) fL MCH 33.7 H (27.0-33.0) pg MCHC 33.5 (31.0-35.0) g/dl RDW 12.1 (11.0-16.0) % Plt Count 166 (160-400) X10*3/uL MPV 10.8 (9.4-12.3) fL Immature Gran % (Auto) 0.2 (0.0-0.4) % Neut % (Auto) 65.4 (45-73) % Lymph % (Auto) 25.1 (20-40) % Richardson % (Auto) 6.6 (2-11) % Eos % (Auto) 2.1 (0-4) % Baso % (Auto) 0.6 (0-2) % Lymph # (Auto) 1.3 (1.2-4.9) X10*3/uL Richardson # (Auto) 0.4 (0.1-1.2) X10*3/uL Eos # (Auto) 0.1 (0.0-0.4) X10*3/uL Baso # (Auto) 0.0 (0.0-0.2) X10*3/uL Abs Immat Gran (auto) 0.01 (0.00-0.03) X10*3/uL Absolute Neuts (auto) 3.5 (2.0-8.3) x10*3/uL Absolute Nucleated RBC 0.000 (0.0-0.012) X10*3/uL Nucleated RBC % (auto) 0.0 (0.0-0.2) /100WBC Sodium 142 (135-145) mmol/L Potassium 4.2 (3.3-5.1) mmol/L Chloride 108 (96-108) mmol/L Carbon Dioxide 28 (22-29) mmol/L Anion Gap 10 L (12-20) BUN 17 H (9-16) mg/dL Creatinine 0.92 (0.5-1.4) mg/dL Estim Creat Clear Calc 71.6 Estimated GFR > 60 Random Glucose 99 (60-115) mg/dL Calcium 9.7 D (8.4-10.2) mg/dL Troponin I High Sens < 2.7 (<3.5-17.0) ng/L Beta HCG, Quant < 2 mIU/mL Independent Interpretation I performed an independent interpretation of an: EKG (Vent. Rate : 087 BPM Atrial Rate : 087 BPM P-R Int : 148 ms QRS Dur : 110 ms QT Int : 352 ms P-R-T Axes : 064 055 038 degrees QTc Int : 423 ms Normal sinus rhythm Incomplete right bundle branch block Borderline ECG When compared with ECG of 25-NOV-2013 23:04, No signif) and Plain X-Ray Radiology Impression Discussion of test interpretation with radiology: I have reviewed the radiologist's reading. External Record Review External record reviewed: Inpatient record, Office record, Outpatient record, Prior outpatient labs, Prior outpatient radiology, Primary care record and Outside ED record Prescription Management I considered prescription management with: Pain Medication (toradol ) and Other (cyclobenzaprine ) Chronic Conditions Patient?s care impacted by: Other (PTSD, anemia, fibromyalgia ) Critical Care Time Critical Care Time Critical Care Time: No Discharge Plan Discharge Clinical Impression: Neck pain, Trapezius muscle spasm Patient Disposition: Home, Self-Care Instructions: Muscle Spasm (ED), Neck Pain (ED) Additional Instructions: Take your medications as prescribed. If you were prescribed antibiotics today, it is important that you take your medication to their entirety, do not skip any doses, do not finish them early. Follow-up with your primary care provider this week. Return to the emergency department with new or worsening symptoms. Such as fevers, chills, chest pain, shortness of breath, nausea, vomiting, dizziness, headache, vision changes, lethargy In case of emergency call 911 Cyclobenzaprine is a muscle relaxer it is strong and can make you drowsy. Do not take with sedatives or any other muscle relaxers or alcohol. Do not drive or operate machinery while taking this. Do not share this medication with anyone. Toradol has been sent to your pharmacy, you tolerated this well in the department. Please take this as prescribed do not take this with ibuprofen, or other NSAIDs, do not mix this with alcohol. Side effects of this medication including increased risk for bleeding and possible kidney injury. Prescriptions: New cyclobenzaprine 10 mg tablet 10 mg PO BEDTIME PRN (Reason: muscle spasm) Qty: 7 0RF ketorolac 10 mg tablet 10 mg PO TID PRN (Reason: pain) 5 Days Qty: 15 0RF lidocaine 5 % adhesive patch,medicated 1 patch topical DAILY PRN (Reason: pain) Qty: 15 0RF Rx Instructions: leave on most painful area for up to 12 hrs No Action naproxen 500 mg tablet 500 mg PO BID PRN (Reason: pain) Qty: 20 0RF albuterol sulfate 90 mcg/actuation HFA aerosol inhaler 2 puff inhalation Q4-6H PRN (Reason: wheezing) Referrals: Brenda Kelly MD [Primary Care Provider] - 2 days Stand Alone Forms: Work/School Release Print Language: Syriac
--- NOTE | 2023-11-18 13:58 | ECG_ITS ---
Test Reason : QT INTERVAL Blood Pressure : / mmHG Vent. Rate : 087 BPM Atrial Rate : 087 BPM P-R Int : 148 ms QRS Dur : 110 ms QT Int : 352 ms P-R-T Axes : 064 055 038 degrees QTc Int : 423 ms Normal sinus rhythm Incomplete right bundle branch block Borderline ECG When compared with ECG of 25-NOV-2013 23:04, No significant change was found Referred By: Janett Mensah Electronically Signed By:RAZIA PATRICIA
[2023-11-18 14:54] LABS: MANUAL DIFF FLAG NO
[2023-11-18 14:56] LABS: Basophils Percent Auto 0.6 % (0-2); Eosinophils Absolute Auto 0.1 X10*3/uL (0.0-0.4); Eosinophils Percent Auto 2.1 % (0-4); Hematocrit 37.9 % (37.0-47.0); Hemoglobin 12.7 g/dl (12.0-16.0); Imm Gran Abs Auto 0.01 X10*3/uL (0.00-0.03); Imm Gran Pct Auto 0.2 % (0.0-0.4); Lymphocytes Absolute Auto 1.3 X10*3/uL (1.2-4.9); Lymphocytes Percent Auto 25.1 % (20-40); Mean Corpuscular HGB Conc 33.5 g/dl (31.0-35.0); Mean Corpuscular Hemoglobin 33.7 pg (27.0-33.0); Mean Corpuscular Volume 100.5 fL (80.0-98.0); Mean Platelet Volume 10.8 fL (9.4-12.3); Monocytes Absolute Auto 0.4 X10*3/uL (0.1-1.2); Monocytes Percent Auto 6.6 % (2-11); Neutrophils Absolute Auto 3.5 x10*3/uL (2.0-8.3); Neutrophils Percent Auto 65.4 % (45-73); Platelet Count 166 X10*3/uL (160-400); Red Blood Count 3.77 X10*6/uL (4.20-5.50); Red Cell Distribution Width 12.1 % (11.0-16.0); White Blood Count 5.3 X10*3/uL (4.8-10.8)
[2023-11-18 15:41] LABS: Anion Gap 10 (12-20); Blood Urea Nitrogen 17 mg/dL (9-16); Calcium 9.7 mg/dL (8.4-10.2); Carbon Dioxide 28 mmol/L (22-29); Chloride 108 mmol/L (96-108); Creatinine Clr Calc Pharmacy 71.6; Estimated Glomerular Filt Rate > 60; Glucose Random 99 mg/dL (60-115); Potassium 4.2 mmol/L (3.3-5.1); Sodium 142 mmol/L (135-145)
[2023-11-18] MEDS: Ketorolac Tromethamine 30 MG/ML VIAL IM (15:54)
[2023-11-18] MEDS: Lidocaine 4 % Patch ADH..PATCH 1 PATCH TRANSDERMA (15:54)
--- NOTE | 2023-11-18 15:58 | PC.NURSE ---
pt medicated for 02/06 rt neck/shoulder pain
[2023-11-18 16:05] LABS: HCG Quantitative < 2 mIU/mL; Troponin-I High Sensitivity < 2.7 ng/L (<3.5-17.0)
[2023-11-18 17:02] VITALS: BP 116/60; PULSE 88; RESP 18; TEMP 36.9; O2SAT 99
[2023-11-18 17:05] VITALS: BP 116/60; PULSE 88; RESP 18; TEMP 36.9; O2SAT 99
== END 2023-11-18 17:05 | disposition home or self-care (01) ==
PROVIDERS: Nurse Practitioner Family; Emergency Provider Emergency Medicine; PCP Family Medicine
DX: M54.2 Cervicalgia (principal); M62.838 Other muscle spasm; R07.9 Chest pain, unspecified; M79.7 Fibromyalgia; D64.9 Anemia, unspecified; F17.200 Nicotine dependence, unspecified, uncomplicated; Z79.899 Other long term (current) drug therapy
CPT/HCPCS: 36415; 71046; 80048; 84484; 84702; 85025; 93005; 96372; 99284; 99285; J1885

== ENCOUNTER → 2023-11-18 13:58 | Outpatient (BNV) | payer OTHER, SELFPAY | PROVIDERS: Emergency Provider Emergency Medicine; PCP Family Medicine; Visit Provider Internal Medicine | DX: I45.10 Unspecified right bundle-branch block (principal) | CPT/HCPCS: 93010 ==

== ENCOUNTER 2024-02-08 16:17 | Outpatient (REF) | payer OTHER, SELFPAY ==
[2024-02-08 17:54] LABS: HCG Quantitative < 2 mIU/mL
== END 2024-02-08 16:18 | disposition home or self-care (01) ==
LOC: HO.HHCL 16:17
PROVIDERS: Visit Provider Internal Medicine
DX: N91.2 Amenorrhea, unspecified (principal)
CPT/HCPCS: 36415; 84702

== ENCOUNTER 2024-05-31 08:00 | Outpatient (REF) | payer OTHER, SELFPAY ==
[2024-06-03 11:47] LABS: HPV 16,18/45 See PAP report
[2024-06-05 22:29] LABS: C. trachomatis RNA TMA NOT DETECTED (NOT DETECTED); N. gonorrhoeae RNA TMA NOT DETECTED (NOT DETECTED)
[2024-06-06 01:19] LABS: Trichomonas (NAAT) NOT DETECTED (NOT DETECTED)
== END 2024-05-31 08:01 | disposition home or self-care (01) ==
LOC: HO.LNP 08:00
PROVIDERS: Visit Provider Family Medicine
DX: Z12.4 Encounter for screening for malignant neoplasm of cervix (principal)
CPT/HCPCS: 87491; 87591; 87624; 87661; 88175

== ENCOUNTER 2025-01-20 09:33 | Outpatient (REF) | payer OTHER, SELFPAY ==
--- OUTSIDE RECORDS SUMMARY | 2025-01-20 10:20 | XMS_ITS | Clinical Summary ---
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 Name Role Phone Unavailable Primary Care Provider Unavailabl e Social History Tobacco Use Types Packs/Day Years Used Date Smoking Tobacco: Never Assessed Comments Unknown Sex and Gender Information Value Date Recorded Sex Assigned at Not on file Legal Sex Female 4:51 AM EST Gender Identity Not on file Sexual Orientation Not on file Plan of Treatment Health Maintenance Due Date Last Done Comments DTaP,Tdap,and Td Vaccines (1 - Tdap) 2004 Hepatitis B Vaccines (1 of 3 - 19+ 3-dose series) 2004 Cervical Cancer Screening: P ap Smear 2006 COVID-19 Vaccine ( - 2023-2 5 season) 2024 Influenza Vaccine (Season Ended) 2025 HIB Vaccines Aged Out No longer eligi ble based on patient's age to complete this topic HPV Vaccines Aged Out No longer eligi ble based on patient's age to complete this topic Hepatitis A Vaccines Aged Out No long er eligible based on patient's age to complete this topic IPV Vaccines Aged Out No longer eligi ble based on patient's age to complete this topic MMR Vaccines Aged Out No longer eligi ble based on patient's age to complete this topic Meningococcal ACWY Vaccine Aged Out N o longer eligible based on patient's age to complete this topic Meningococcal B Vaccine Aged Out No l onger eligible based on patient's age to complete this topic Pneumococcal Vaccine: Pediat rics (0 to 5 Years) and At-Risk Patients (6 to 64 Years) Aged Out No longer eligible b ased on patient's age to complete this topic RSV Immunization Patients Un dane 20 months Aged Out No longer eligible b ased on patient's age to complete this topic Varicella Vaccines Aged Out No longer eligible based on patient's age to complete this topic
[2025-01-20 11:50] LABS: Anion Gap 8 (12-20); Blood Urea Nitrogen 20 mg/dL (9-16); Calcium 9.1 mg/dL (8.4-10.2); Carbon Dioxide 27 mmol/L (22-29); Chloride 109 mmol/L (96-108); Cholesterol 128 mg/dL (<200); Estimated Glomerular Filt Rate > 60; Glucose Random 63 mg/dL (60-115); HDL Cholesterol 59 mg/dL (>40); LDL Cholesterol Calculated 59 mg/dL (<100); Potassium 4.5 mmol/L (3.3-5.1); Sodium 139 mmol/L (135-145); Triglycerides 50 mg/dL (<150)
[2025-01-20 12:03] LABS: HIV AB/AG Nonreactive (Nonreactive); HIV Num 1 0.06 S/CO (0.00-0.99); ~HepC Num1 0.18 S/CO (0.00-0.79); ~Hepatitis C Antibody Nonreactive (Nonreactive)
[2025-01-20 12:11] LABS: Syphilis Screen Reactive (Nonreactive)
[2025-01-20 12:21] LABS: Vitamin B12 270 pg/mL (200-900)
[2025-01-20 13:03] LABS: CT PCR NOT DETECTED (Not Detect.); NG PCR NOT DETECTED (Not Detect.)
[2025-01-23 13:45] LABS: RPR Quantitative Non-Reactive (Nonreactive)
[2025-01-23 13:46] LABS: T.Pallidum Particle Agg Test Reactive (Nonreactive)
== END 2025-01-20 09:34 | disposition home or self-care (01) ==
LOC: HO.HHCL 09:33
PROVIDERS: PCP Family Medicine; Visit Provider Family Medicine
DX: Z13.220 Encounter for screening for lipoid disorders (principal); Z13.6 Encounter for screening for cardiovascular disorders; Z11.4 Encounter for screening for human immunodeficiency virus [HIV]; D75.89 Other specified diseases of blood and blood-forming organs; E28.2 Polycystic ovarian syndrome; Z20.2 Contact with and (suspected) exposure to infections with a predominantly sexual mode of transmission
CPT/HCPCS: 80048; 80061; 82607; 82746; 86592; 86780; 86803; 87389; 87491; 87591